=== PATIENT | male | born 1930 ===

== ENCOUNTER 2018-06-04 11:20 | Outpatient (CLI) | payer MEDICARE | END 2018-06-04 11:21 | disposition home or self-care (01) | LOC: C.PAT 11:20 | DX: N40.0 Benign prostatic hyperplasia without lower urinary tract symptoms (principal); R32 Unspecified urinary incontinence ==

== ENCOUNTER 2018-06-16 07:55 | Day surgery (SDC) | payer MEDICARE ==
[2018-06-04 11:33] VITALS: BMI 24.3
[2018-06-16] MEDS ORDERED: cefTRIAXone 1 gm 1 GM/100 ML BAG IVPB ONE (09:26)
[2018-06-16] MEDS ORDERED: Iohexol 240 (50 ml) ONE (09:27)
[2018-06-16] MEDS ORDERED: Iodixanol 320 MG/ML 200 ML BOTTLE IV ONE (10:15)
[2018-06-16] MEDS ORDERED: Propofol 10 mg/ml Inj (20 ML) ONE (10:19)
[2018-06-16] MEDS ORDERED: Etomidate 20 mg/10ml Inj IV ONE (10:33)
[2018-06-16] MEDS ORDERED: HYDROmorphone 0.5 mg/0.5 ml ISec IVP PRN (11:15)
--- NOTE | 2018-06-16 11:18 | PCM.SURG1 ---
Surgeon's Initial Post Op Note - Surgeon's Notes Surgeon: Gregg Pemberton [employer] Supervisor: none Type of Anesthesia: General Mask Pre-Operative Diagnosis: frequency, incontinence Operative Findings: same,. BPH. Prostatitis. cystitis Post-Operative Diagnosis: same Operation Performed: cgm. cmg. cysto. bilat rtg pyelogram. bladder bx and fulg. fulg of prostatic bleeding. Prostitc urethral bx and fulg. EUA Specimen/Specimens Removed: urien. bladder bx. Porastatic urethral bx Estimated Blood Loss: EBL {In ML}: 10 Blood Products Given: N/A Post-Op Condition: Good Date of Surgery/Procedure: 06/16/18 Time of Surgery/Procedure: 11:05
[2018-06-16 11:48] VITALS: O2SAT 98
--- NOTE | 2018-06-16 12:09 | RAD ---
Date of service: 06/16/2018 PROCEDURE: Intraoperative Fluoroscopy. HISTORY: URINARY INCONTINENCE/FREQUENCY FINDINGS: Fluoroscopic assistance was provided for retrograde pyelogram and cystogram. Please refer to the operative report from Dr. ROSADO, [place]. Total fluoroscopic time (continuous mode) utilized during the procedure 21.0 seconds. Dose report: DLP [id number] (mGy/m2)
--- NOTE | 2018-06-16 12:30 | RAD ---
Date of service: 06/16/2018 HISTORY: URINARY INCONTINENCE/FREQUENCY COMPARISON: None available. FINDINGS: BOWEL: Constipation without fecal impaction or obstruction. BONES: Multilevel degenerative changes and mild levoscoliosis. OTHER FINDINGS: None. IMPRESSION: No significant or acute findings to account for/ related to the clinical presentation.
[2018-06-16 12:46] VITALS: BP 159/87; PULSE 61; RESP 6; TEMP 97
--- NOTE | 2018-06-17 19:34 | OP ---
PROCEDURE DATE: 06/16/2018 PREOPERATIVE DIAGNOSES: Urinary incontinence. Urinary frequency. POSTOPERATIVE DIAGNOSES: Urinary incontinence. Urinary frequency. Benign prostatic hypertrophy. PROCEDURES: Cystogram. Cystometrogram. Voiding cystourethrogram. Cystoscopy. Bilateral retrograde pyelogram. Prostatic urethral biopsy and fulguration. Bladder biopsy and fulguration. Fulguration of prostatic urethral bleeding. Exam under anesthesia. OPERATING SURGEON: Jill Pemberton MD PROCEDURE FOLLOWS: The patient received perioperative antibiotics. The patient was placed in the supine position. The Armstrong catheter was inserted. The residual within the bladder was 30 mL. Urine was sent for bacteriologic and cytologic examination. The patient had a cystogram and cystometrogram performed. Simple cystometry was performed. Iodinated contrast was instilled to the bladder. Water manometry was performed. The filling was in 30 mL increments. The patient had a first sensation in the bladder at a volume of approximately 50 mL. The patient had sensation to void of volume at 90 mL. The bladder was filled up to a volume of 200 mL. The patient felt uncomfortable. He did not develop a brisk detrusor contraction. The bladder pressure remained at less than 20 cm of water. The fluoroscopic views of the bladder were obtained in PA and oblique views. The bladder was noted to be smooth-walled. There were no intrinsic or extrinsic filling defects within the bladder. There was no vesicoureteral reflux. The Armstrong catheter was removed. Voiding cystourethrogram was obtained. The patient had incontinence and voided. He could not control this incontinence. The stream was fair to slow. There was no stricture noted. There was obstruction and narrowing in the area of prostatic urethra. The patient was then placed in lithotomy position. Genitalia prepped and draped sterilely. Anesthesia was applied by the anesthesiologist. A 22-Bolivian cystoscope sheath was introduced under direct vision. Urethra, prostate and bladder were inspected with 30 degrees and 7 degrees lenses. FINDINGS: There was no stricture in the anterior leaflet. There was papillary inflammatory changes at the prostatic apex adjacent to the veru. The prostatic urethra was 3.5 cm length and occlusive. There were marked inflammatory changes within the prostatic urethra. There was moderate contact bleeding from the prostatic urethral mucosal surface. The bladder was noted to be moderately trabeculated. There was no bladder tumor. There was no bladder stone. The ureteral orifices were normal position and shape. There were areas of erythema of the bladder of focal nature. Occlusive tip retrograde ureteral pyelogram was performed. Iodinated contrast dye was instilled via cone-tip catheter into each ureteral orifice. Retrograde pyelograms demonstrate no evidence of filling defect or obstruction within the ureters or collecting systems as viewed under fluoroscopic control and as viewed sequentially within the upper and lower abdomen. Post drainage view also demonstrating good drainage from the kidneys. The area of abnormal mucosa within the bladder was biopsied using cold cup biopsy forceps. Fulguration was performed with Ball electrode and electrocautery. The prostatic urethral biopsy was performed at the prostatic apex. Fulguration was performed with Ball electrode and electrocautery. There was further persistent bleeding from the prostatic urethra at areas of the mid and proximal urethra which were not biopsied. Fulguration was performed with Ball electrode and electrocautery. However, the bleeding persisted. Therefore, the cystoscope and sheath were removed. A 24-Bolivian resectoscope was inserted. Fulguration was then performed. Hemostasis was complete. The resectoscope and sheath were removed. Armstrong catheter was inserted. Bladder drainage was clear. Exam under anesthesia/bimanual examination was performed. There was no abnormal pelvic mass fixation or induration. Prostate was supple and smooth without fixation, induration or nodularity. The patient tolerated the procedure without complication. The patient was returned to supine position. The patient was transferred to the recovery room in satisfactory condition. Jill Pemberton MD
== END 2018-06-16 13:32 | disposition home or self-care (01) ==
LOC: C.SDS 07:55
PROVIDERS: ATTEND Urology
DX: N40.1 Benign prostatic hyperplasia with lower urinary tract symptoms (principal); N39.498 Other specified urinary incontinence; N30.80 Other cystitis without hematuria; R35.0 Frequency of micturition; I10 Essential (primary) hypertension; I48.91 Unspecified atrial fibrillation; G47.33 Obstructive sleep apnea (adult) (pediatric)
CPT/HCPCS: 51600; 51725; 52214; 74018; 87086; 88104; 88305; J0696